=== PATIENT | female | born 1960 | race Caucasian/White ===

== ENCOUNTER 2017-04-07 11:55 | Emergency (ER) | payer BC ==
[~2017-04-07] VITALS: Ht 160 cm; Wt 73.9 kg
[~2017-04-07 11:55] MED LIST: BACLOFEN20 MG PO; COL-RITE100 MG PO; DEXAMETHASONE4 MG PO; GABAPENTIN800 M1 PO; MIRAPEX0.25 MG PO; MIRTAZAPINE30 M2 PO; MOTRIN800 MG PO; NOR10T PO; NORCO1 TA2 PO
[2017-04-07 16:34] VITALS: BP 138/70
== END 2017-04-07 16:53 | disposition home or self-care (01) ==
LOC: ED 11:55
DX: M26.602 Left temporomandibular joint disorder, unspecified (principal); F41.9 Anxiety disorder, unspecified; R11.2 Nausea with vomiting, unspecified; G89.4 Chronic pain syndrome; Z71.6 Tobacco abuse counseling
CPT/HCPCS: 99406; Q0162